=== PATIENT | male | born 1980 | race Caucasian/White ===

== ENCOUNTER 2019-12-12 17:02 | Emergency (ER) | payer MEDICAID ==
[~2019-12-12] VITALS: Ht 160 cm; Wt 87.5 kg
[2019-12-12 17:25] VITALS: BP 116/69
--- NOTE | 2019-12-12 17:55 | NUR ---
pt states he was referred to ER by his PCP for "high cholesterol". Pt states he has been having occasional ringing in bilat ears, and a "burning" feeling in his eyes. Pt denies any symptoms of CP, SOB, etc. Pt does not have any documentation from PCP. pt in chair D at this time.
--- NOTE | 2019-12-12 18:40 | NUR ---
PA Barr evaluating pt at this time.
[2019-12-12 18:59] VITALS: BP 116/69
--- NOTE | 2019-12-12 19:00 | NUR ---
Patient discharged with v/s stable. Written and verbal after care instructions given and explained. Patient verbalized understanding. Carried with steady gait. All questions addressed prior to discharge. Advised to follow up with PMD.
== END 2019-12-12 19:00 | disposition home or self-care (01) ==
LOC: MED 17:02
DX: H93.19 Tinnitus, unspecified ear (principal)
CPT/HCPCS: 99281